=== PATIENT | female | born 1945 | race American Indian/Alaskan Native ===

== ENCOUNTER 2019-09-02 10:10 | Outpatient (CLI) | payer MEDICARE, OTHER ==
--- NOTE | 2019-09-02 16:18 | Vascular Lab Report ---
Bilateral ABIs. 09/02/2019. HISTORY: Claudication. FINDINGS: Right JOSE MANUEL is normal at 1.82. Left JOSE MANUEL is abnormal at 0.83. IMPRESSION: Mild/moderate peripheral vascular disease left lower extremity. Signer Name: Praneeth Villegas MD Signed: 09/02/2019 4:13 PM Workstation Name: [id number]
== END 2019-09-02 10:11 | disposition home or self-care (01) ==
LOC: VAS 10:10
PROVIDERS: ATTEND Internal Medicine
DX: I73.9 Peripheral vascular disease, unspecified (principal)
CPT/HCPCS: 93922